=== PATIENT | female | born 1990 | race Asian ===

== ENCOUNTER → 2018-05-08 | Outpatient (CLI) | payer OTHER | LOC: COL.RAD 04-27 14:00 | DX: H93.19 Tinnitus, unspecified ear (principal) | CPT/HCPCS: A9585 ==

== ENCOUNTER 2019-05-31 05:33 | Day surgery (SDC) | payer OTHER ==
[~2019-05-31] VITALS: Ht 157.5 cm; Wt 59.0 kg
[2019-05-31 06:38] VITALS: BP 116/72; PULSE 76; TEMP 98.1
--- NOTE | 2019-05-31 06:46 | NUR ---
TO RM AT 0602- CALL LIGHT IN REACH WILL CALL FRIEND WHEN READY TO BE DISCHARGED.
[2019-05-31 08:19] VITALS: BP 99/62; PULSE 66; TEMP 98.1
--- NOTE | 2019-05-31 08:19 | NUR ---
TO RM 8 PER CART FROM OR. ALERT ORIENTED X3, TALKING TO STAFF. C/O PAIN IN RIGHT FOOT, BUT NOT CLEAR OF PAIN SCALE. PATIENT KEPT SAYING IT FEELS FUNNY. (PATIENT RECEIVED BLOCK PRIOR TO SURGERY) BANDAIDE OVER INCISION SITE. DENIES NAUSEA .
[2019-05-31] MEDS ORDERED: NORCO 325 MG-51 TAB PO (08:33)
[2019-05-31] MEDS ORDERED: MOTRIN 600600 MG/TAB PO (08:33)
[2019-05-31 08:35] VITALS: BP 94/67; PULSE 76
--- NOTE | 2019-05-31 08:35 | NUR ---
RECEIVED WATER AND TAKING SIPS.
[2019-05-31 08:50] VITALS: BP 110/63; PULSE 70
[2019-05-31 09:05] VITALS: BP 103/66; PULSE 69
--- NOTE | 2019-05-31 09:25 | NUR ---
DISCHARGED PER WC BY NURSING STAFF TO PRIVATE CAR IN CARE OF FRIEND
--- NOTE | 2019-05-31 09:45 | NUR ---
ATE 100% OF MUFFIN AND 1/2 HER WATER.
--- NOTE | 2019-05-31 09:46 | NUR ---
RECEOVED DISCHARGE INSTRUCTIONS AND VERBALIZED UNDERSTANDING. DISCONTINUED IV AND INT- CATHETER INTACT.
== END 2019-05-31 09:50 | disposition home or self-care (01) ==
LOC: SDCO 05:33
DX: T63.621A Toxic effect of contact with other jellyfish, accidental (unintentional), initial encounter (principal); Z86.73 Personal history of transient ischemic attack (TIA), and cerebral infarction without residual deficits; Z83.3 Family history of diabetes mellitus; Z80.9 Family history of malignant neoplasm, unspecified; Z82.3 Family history of stroke
CPT/HCPCS: J0690; J1100; J1885; J2250; J2405; J2704; J3010; J7120

== ENCOUNTER → 2021-02-04 | Outpatient (CLI) | payer OTHER ==
[~2021-02-04] MED LIST: MOTRIN 600600 MG/TAB PO; NORCO 325 MG-51 TAB PO
== END ==
LOC: COL.RAD 09:38
DX: S06.0X9A Concussion with loss of consciousness of unspecified duration, initial encounter (principal); R51.9 Headache, unspecified; R42 Dizziness and giddiness; Z87.820 Personal history of traumatic brain injury
CPT/HCPCS: A9585

== ENCOUNTER 2021-09-04 08:15 | Outpatient (RCR) | payer OTHER | END 2021-09-08 | disposition home or self-care (01) | LOC: WSST | DX: R41.89 Other symptoms and signs involving cognitive functions and awareness (principal); F07.81 Postconcussional syndrome ==

== ENCOUNTER 2021-10-05 08:15 | Outpatient (RCR) | payer BC | END 2021-10-08 | disposition home or self-care (01) | LOC: WSST | DX: R41.3 Other amnesia (principal); R48.9 Unspecified symbolic dysfunctions; R41.89 Other symptoms and signs involving cognitive functions and awareness; F07.81 Postconcussional syndrome ==

== ENCOUNTER 2021-11-02 08:15 | Outpatient (RCR) | payer BC | END 2021-11-08 | disposition home or self-care (01) | LOC: WSST | DX: R41.3 Other amnesia (principal); R48.9 Unspecified symbolic dysfunctions; R41.89 Other symptoms and signs involving cognitive functions and awareness; F07.81 Postconcussional syndrome ==

== ENCOUNTER 2021-12-08 08:15 | Outpatient (RCR) | payer BC, OTHER | END 2021-12-09 | disposition home or self-care (01) | LOC: WSST | DX: R41.89 Other symptoms and signs involving cognitive functions and awareness (principal); F07.81 Postconcussional syndrome ==